=== PATIENT | female | born 1980 | race Caucasian/White ===

== ENCOUNTER → 2017-03-26 | Outpatient (CLI) | payer OTHER ==
[~2017-03-26] VITALS: Ht 175.3 cm; Wt 119.3 kg
[~2017-03-26] MED LIST: HYDR-309 PO; ROPI1TAB38 PO; VANC2PLA3 IV
[2017-03-26 11:15] VITALS: BP 124/74
== END | disposition home or self-care (01) ==
LOC: HBOWC 09:45
PROVIDERS: ATTEND Emergency Medicine
DX: T81.31XA Disruption of external operation (surgical) wound, not elsewhere classified, initial encounter (principal); L97.311 Non-pressure chronic ulcer of right ankle limited to breakdown of skin; E66.9 Obesity, unspecified; F17.210 Nicotine dependence, cigarettes, uncomplicated; Y83.8 Other surgical procedures as the cause of abnormal reaction of the patient, or of later complication, without mention of misadventure at the time of the procedure
CPT/HCPCS: 97597; G0463

== ENCOUNTER → 2017-04-06 | Outpatient (CLI) | payer OTHER ==
[2017-04-06 13:45] VITALS: BP 122/77
== END | disposition home or self-care (01) ==
LOC: HBOWC 13:17
PROVIDERS: ATTEND Emergency Medicine Undersea and Hyperbaric Medicine
DX: L97.311 Non-pressure chronic ulcer of right ankle limited to breakdown of skin (principal); F17.210 Nicotine dependence, cigarettes, uncomplicated; E66.9 Obesity, unspecified
CPT/HCPCS: 97597; 97598

== ENCOUNTER → 2017-04-13 | Outpatient (CLI) | payer OTHER ==
[~2017-04-13] MED LIST changes: +LIDOCAINE HCL 1%/EPI 1:200,000/PF 10 ML VIAL CAUDAL ONE
[2017-04-13 14:44] VITALS: BP 146/51
== END | disposition home or self-care (01) ==
LOC: HBOWC 13:24
PROVIDERS: ATTEND Emergency Medicine
DX: L97.311 Non-pressure chronic ulcer of right ankle limited to breakdown of skin (principal); E66.9 Obesity, unspecified; F17.210 Nicotine dependence, cigarettes, uncomplicated
CPT/HCPCS: 97597; 97598; J3490

== ENCOUNTER → 2017-04-20 | Outpatient (CLI) | payer OTHER ==
[~2017-04-20] MED LIST changes: -LIDOCAINE HCL 1%/EPI 1:200,000/PF 10 ML VIAL CAUDAL ONE
[2017-04-20 10:00] VITALS: BP 136/74
== END | disposition home or self-care (01) ==
LOC: HBOWC 09:19
PROVIDERS: ATTEND Emergency Medicine
DX: L97.311 Non-pressure chronic ulcer of right ankle limited to breakdown of skin (principal); E66.9 Obesity, unspecified; F17.210 Nicotine dependence, cigarettes, uncomplicated
CPT/HCPCS: 97597; 97598

== ENCOUNTER → 2017-04-27 | Outpatient (CLI) | payer OTHER ==
[2017-04-27 14:03] VITALS: BP 128/66
== END | disposition home or self-care (01) ==
LOC: HBOWC 13:39
PROVIDERS: ATTEND Emergency Medicine
DX: T81.89XD Other complications of procedures, not elsewhere classified, subsequent encounter (principal); L97.311 Non-pressure chronic ulcer of right ankle limited to breakdown of skin; E66.9 Obesity, unspecified; F17.210 Nicotine dependence, cigarettes, uncomplicated; Y83.8 Other surgical procedures as the cause of abnormal reaction of the patient, or of later complication, without mention of misadventure at the time of the procedure
CPT/HCPCS: 97597; 97598

== ENCOUNTER → 2017-05-04 | Outpatient (CLI) | payer OTHER ==
[2017-05-04 14:00] VITALS: BP 125/90
== END | disposition home or self-care (01) ==
LOC: HBOWC 13:32
PROVIDERS: ATTEND Emergency Medicine Undersea and Hyperbaric Medicine
DX: T81.89XD Other complications of procedures, not elsewhere classified, subsequent encounter (principal); L97.311 Non-pressure chronic ulcer of right ankle limited to breakdown of skin; E66.9 Obesity, unspecified; F17.210 Nicotine dependence, cigarettes, uncomplicated; Y83.8 Other surgical procedures as the cause of abnormal reaction of the patient, or of later complication, without mention of misadventure at the time of the procedure
CPT/HCPCS: 97597; 97598

== ENCOUNTER → 2017-05-11 | Outpatient (CLI) | payer OTHER ==
[~2017-05-11] MED LIST changes: +ROPI1TAB11 PO
[2017-05-11 15:01] VITALS: BP 112/58
== END | disposition home or self-care (01) ==
LOC: HBOWC 14:27
PROVIDERS: ATTEND Emergency Medicine
DX: L97.311 Non-pressure chronic ulcer of right ankle limited to breakdown of skin (principal); E66.9 Obesity, unspecified; F17.210 Nicotine dependence, cigarettes, uncomplicated
CPT/HCPCS: 97597

== ENCOUNTER → 2017-05-18 | Outpatient (CLI) | payer OTHER ==
[~2017-05-18] MED LIST changes: +DOXY100C PO; -ROPI1TAB38 PO; -VANC2PLA3 IV
[2017-05-18 13:53] VITALS: BP 143/76
== END | disposition home or self-care (01) ==
LOC: HBOWC 13:35
PROVIDERS: ATTEND Emergency Medicine
DX: T86.828 Other complications of skin graft (allograft) (autograft) (principal); L97.311 Non-pressure chronic ulcer of right ankle limited to breakdown of skin; F17.210 Nicotine dependence, cigarettes, uncomplicated; E66.9 Obesity, unspecified; Z68.1 Body mass index [BMI] 19.9 or less, adult; Y83.2 Surgical operation with anastomosis, bypass or graft as the cause of abnormal reaction of the patient, or of later complication, without mention of misadventure at the time of the procedure
CPT/HCPCS: 97597